=== PATIENT | female | born 1935 | race Caucasian/White ===

== ENCOUNTER → 2025-03-12 | Outpatient (CLI) | payer MEDICARE, BC, SELFPAY ==
--- NOTE | 2025-03-12 13:40 | XR_ITS ---
Examination: Bone densitometry Date and time of exam: March 12, 2025, 1400 hours INDICATIONS: Hysterectomy age 37, lumbar discectomy 10 years ago, calcium and vitamin D 5 years Technique: Lumbar spine and hip total bone mineralization values of an calculated. Peak reference and age match control results have been displayed. Findings: Lumbar spine total bone mineralization is 1.519 gm/cm2. This is 4.3 standard deviations above peak reference. This is 7.2 standard deviations above age-matched controls. Hip total bone mineralization is 0.795 gm/cm2 This is 1.2 standard deviations below peak reference. This is 1.1 standard deviations above age-matched controls Impression: There is normal mineralization based on lumbar spine measurements. There is osteopenia based on hip measurements Lumbar mineralization is increased 10.4% compared with July 27, 2019 Hip mineralization is decreased 9.0% compared with July 27, 2019
== END | disposition home or self-care (01) ==
PROVIDERS: Referring Provider Family Medicine; Visit Provider Family Medicine
DX: M85.89 Other specified disorders of bone density and structure, multiple sites (principal)
CPT/HCPCS: 77080